=== PATIENT | female | born 1980 | race Caucasian/White ===

== ENCOUNTER 2019-06-01 10:39 | Emergency (ER) | payer OTHER ==
[2019-06-01 11:54] VITALS: BP 119/85
--- NOTE | 2019-06-01 12:35 | UC ---
Throat Pain/Nasal Petr HPI - HPI Summary HPI Summary: 38 year old female with h/o sore throats, inlarged tonsils in past, present with increased pain in her sinuses, ear fullness, sore throat. NO SOB, no coughing, no abdominal pains/ bowel changes. fever ~ 100.5 max. NO ENT in the past. s/s x 3 days, patient had similar symptoms a week ago, but resolved. no recent ABX use - History of Current Complaint Chief Complaint: UCRespiratory Stated Complaint: SINUSES Time Seen by Provider: 06/01/19 12:22 Hx Obtained From: Patient Hx From Patient Unobtainable Due To: Dementia Hx Last Menstrual Period: 11/21/13 ?: No Onset/Duration: Sudden Onset, Lasting Days - 3 Severity: Moderate Pain Intensity: 4 Pain Scale Used: 0-10 Numeric Cough: None Associated Signs & Symptoms: Positive: Sinus Discomfort, Nasal Discharge. Negative: Wheezing - Allergies/Home Medications Allergies/Adverse Reactions: Allergies Allergy/AdvReac Type Severity Reaction Status Date / Time sulfites Allergy Hives Uncoded 06/01/19 11:55 Home Medications: Home Medications buPROPion HCl [Wellbutrin Sr] 1 tab PO DAILY 06/01/19 [History Confirmed ] PMH/Surg Hx/FS Hx/Imm Hx Previously Healthy: Yes - Surgical History Surgical History: Yes Surgery Procedure, Year, and Place: BENIGN KIDNEY CYST REMOVED; Hyster - Family History Known Family History: Positive: None, Non-Contributory - Social History Alcohol Use: None Substance Use Type: None Smoking Status (MU): Former Smoker Type: Cigarettes Amount Used/How Often: 1 cig./day When Did the Patient Quit Smoking/Using Tobacco: 04/2013 - Immunization History Most Recent Influenza Vaccination: 2013 Most Recent Tetanus Shot: UP TO DATE Most Recent Pneumonia Vaccination: HAS NOT HAD Review of Systems All Other Systems Reviewed And Are Negative: Yes Constitutional: Positive: Fever - 100.5. Negative: Chills, Fatigue ENT: Positive: Sore Throat, Ear Ache, Nasal Discharge, Sinus Congestion, Sinus Pain/Tenderness Respiratory: Negative: Shortness Of Breath, Cough Cardiovascular: Negative: Palpitations Gastrointestinal: Negative: Abdominal Pain, Diarrhea Is Patient Immunocompromised?: No Physical Exam Triage Information Reviewed: Yes Appearance: No Pain Distress, Well-Nourished, Ill-Appearing - mild Vital Signs: Initial Vital Signs Temp 98.8 F 06/01/19 11:51 Pulse 94 06/01/19 11:51 Resp 18 06/01/19 11:51 BP 119/85 06/01/19 11:51 Pulse Ox 98 06/01/19 11:51 Vital Signs Reviewed: Yes Eyes: Positive: Conjunctiva Clear ENT: Positive: Hearing grossly normal, Pharyngeal erythema - minimal b/l, Nasal congestion, TMs normal - mild fluid posterior to TM b/l, Sinus tenderness, Uvula midline. Negative: Tonsillar swelling, Tonsillar exudate Neck: Positive: Supple, Nontender, No Lymphadenopathy. Negative: Nuchal Rigidity, Enlarged Nodes @ Respiratory: Positive: Chest non-tender, Lungs clear, Normal breath sounds, No respiratory distress, No accessory muscle use Cardiovascular: Positive: RRR, No Murmur, Pulses Normal Abdomen Description: Negative: CVA Tenderness (R), CVA Tenderness (L) Neurological Exam: Normal Psychological Exam: Normal Skin Exam: Normal Throat Pain/Nasal Course/Dx - Course Course Of Treatment: Sinusitis: - Increase fluid intake - ANtibitoics as directed - WOrk note given - GO to ER with fever > 102, neck stiffness, headache not relieved by medication or difficulty swallowing. - Motrin/ Tylenol as needed for pain/ fever. - Differential Dx/Diagnosis Differential Diagnosis/HQI/PQRI: Influenza, Laryngitis, Pharyngitis, Tonsillitis , URI Provider Diagnosis: Sinusitis Discharge ED - Sign-Out/Discharge Documenting (check all that apply): Patient Departure All imaging exams completed and their final reports reviewed: No Studies - Discharge Plan Condition: Good Disposition: HOME Prescriptions: Azithromyxin IVAN (NF) [Z-Ivan (Zithromax) 250 mg tabs #6] 2 tab PO .TODAY, THEN 1 DAILY #6 tab Patient Education Materials: Sinusitis (ED) Referrals: No Primary Care Phys,NOPCP [Primary Care Provider] - [facility] [Outside] Additional Instructions: - Increase fluid intake - ANtibitoics as directed - WOrk note given - GO to ER with fever > 102, neck stiffness, headache not relieved by medication or difficulty swallowing. - Motrin/ Tylenol as needed for pain/ fever. - Billing Disposition and Condition Condition: GOOD Disposition: Home - Attestation Statements Provider Attestation: I was available for consult. This patient was seen by the SUPRIYA. The patient was not presented to , seen by or examined by ak -Andrew Choi MD
== END 2019-06-01 12:37 | disposition home or self-care (01) ==
LOC: UCEAST 10:39
DX: J32.9 Chronic sinusitis, unspecified (principal); Z87.891 Personal history of nicotine dependence; Z88.2 Allergy status to sulfonamides
CPT/HCPCS: 99202; G0463

== ENCOUNTER 2019-12-10 16:28 | Emergency (ER) | payer OTHER ==
[2019-12-10 16:58] VITALS: BP 108/83
[2019-12-10 17:25] LABS: Influenza A Molecular Negative (Negative); Influenza B Molecular Negative (Negative)
--- NOTE | 2019-12-10 17:48 | UC ---
FLU HPI - HPI Summary HPI Summary: 39-year-old female comes in with a chief complaint of 10 days of febrile illness. Had minimal rhinorrhea. Does have some postnasal drip not excessive. Has a dry cough no complaint of chest congestion. The beginning of the illness she tested negative for influenza. She was in [facility] earlier in the month of November. - History of Current Complaint Chief Complaint: UCRespiratory Stated Complaint: FEVER/DRY COUGH Time Seen by Provider: 12/10/19 16:33 Hx Last Menstrual Period: 11/21/13 Pain Intensity: 0 - Allergy/Home Medications Allergies/Adverse Reactions: Allergies Allergy/AdvReac Type Severity Reaction Status Date / Time sulfites Allergy Hives Uncoded 12/10/19 16:58 Home Medications: Home Medications buPROPion HCl [Wellbutrin Sr] 1 tab PO DAILY 06/01/19 [History Confirmed ] Azithromyxin PONCE (NF) [Z-Ponce (Zithromax) 250 mg tabs #6] 2 tab PO .TODAY, THEN 1 DAILY #6 tab 12/10/19 [Rx] Ferrous Sulfate TAB* 325 mg PO DAILY 12/10/19 [History Confirmed 12/10/19] Ibuprofen TAB* [Motrin TAB* 800 MG] 800 mg PO ONCE 12/10/19 [History Confirmed 12/10/19] Oseltamivir CAP* [Tamiflu CAP*] 75 mg PO DAILY 12/10/19 [History Confirmed 12/09] Venlafaxine EXT RELEASE CAP* [Effexor Xr CAP*] 75 mg PO DAILY 12/10/19 [History Confirmed 12/10/19] PMH/Surg Hx/FS Hx/Imm Hx Previously Healthy: Yes - Surgical History Surgical History: Yes Surgery Procedure, Year, and Place: BENIGN KIDNEY CYST REMOVED; Hyster. cardiac ablation 2017 - Family History Known Family History: Positive: None, Non-Contributory - Social History Alcohol Use: None Substance Use Type: None Smoking Status (MU): Former Smoker Type: Cigarettes Amount Used/How Often: 1 cig./day When Did the Patient Quit Smoking/Using Tobacco: 04/2013 - Immunization History Most Recent Influenza Vaccination: 2013 Most Recent Tetanus Shot: UP TO DATE Most Recent Pneumonia Vaccination: HAS NOT HAD Review of Systems All Other Systems Reviewed And Are Negative: Yes Constitutional: Positive: Fever, Other - see hpi Skin: Positive: Negative Eyes: Positive: Negative ENT: Positive: Nasal Discharge Respiratory: Positive: Cough, Other - see hpi Cardiovascular: Positive: Negative Gastrointestinal: Positive: Negative Genitourinary: Positive: Negative Motor: Positive: Negative Neurovascular: Positive: Negative Musculoskeletal: Positive: Negative Neurological/Mental Status: Positive: Negative Psychological: Positive: Negative Is Patient Immunocompromised?: No Physical Exam Triage Information Reviewed: Yes Appearance: No Pain Distress, Well-Nourished, Ill-Appearing - mild Vital Signs: Initial Vital Signs Temp 98.8 F 12/10/19 16:54 Pulse 90 12/10/19 16:54 Resp 14 12/10/19 16:54 BP 108/83 12/10/19 16:54 Pulse Ox 100 12/10/19 16:54 Vital Signs Reviewed: Yes Eye Exam: Normal Eyes: Positive: Conjunctiva Clear ENT: Positive: Pharynx normal, TMs normal Neck: Positive: Supple Respiratory: Positive: Lungs clear, Normal breath sounds, No respiratory distress Cardiovascular: Positive: RRR Musculoskeletal: Positive: Strength Intact, ROM Intact Neurological: Positive: Alert, Muscle Tone Normal Psychological: Positive: Age Appropriate Behavior Skin Exam: Normal Flu Course/Dx - Course Course Of Treatment: Strep and flu are negative. Patient tested for covid 19. Patient will be an home isolation. Patient's had symptoms for 10 days with continued fevers making bacterial infection a possibility therefore did prescribe azithromycin. Patient will continue symptomatic treatment. Patient is worse she needs reevaluation emergency department. - Differential Dx/Diagnosis Provider Diagnosis: Febrile illness Discharge ED - Sign-Out/Discharge Documenting (check all that apply): Patient Departure All imaging exams completed and their final reports reviewed: No Studies - Discharge Plan Condition: Stable Disposition: HOME Prescriptions: Azithromyxin PONCE (NF) [Z-Ponce (Zithromax) 250 mg tabs #6] 2 tab PO .TODAY, THEN 1 DAILY #6 tab Patient Education Materials: Fever in Adults (ED) Referrals: [facility] [Outside] Additional Instructions: MAINTAIN AT HOME ISOLATION. THE [facility] DEPARTMENT WILL CONTACT YOU. IF YOU HAVE NOT HEARD FROM THEM BY TOMORROW, CONTACT THEM, . FOLLOW UP WITH YOUR DOCTOR IF NOT COMPLETELY IMPROVED. GO TO THE EMERGENCY DEPARTMENT IF WORSE OR ANY QUESTIONS OR CONCERNS. - Billing Disposition and Condition Condition: STABLE Disposition: Home
== END 2019-12-10 18:06 | disposition home or self-care (01) ==
LOC: UCCORT 16:28
DX: R50.9 Fever, unspecified (principal); R05 Cough; Z87.891 Personal history of nicotine dependence; Z88.2 Allergy status to sulfonamides
CPT/HCPCS: 87651; 99212; G0463; U0002